=== PATIENT | male | born 1970 | race Caucasian/White ===

== ENCOUNTER 2022-01-25 19:03 | Emergency (ER) | payer MEDICAID, OTHER ==
[~2022-01-25] VITALS: Ht 188 cm; Wt 90.7 kg
[2022-01-25 19:15] VITALS: BP 136/85
[2022-01-25] MEDS ORDERED: MORPHINE SULFATE 4 MG/ML SYR IVP ONE ×2 (19:20→23:50)
--- NOTE | 2022-01-25 19:20 | NUR ---
DR SAM AT BEDSIDE
--- NOTE | 2022-01-25 19:52 | NUR ---
Pt report given to AGUILAR CHRISTIANSON. Transfer of care at this time.
[2022-01-25 20:12] LABS: BASOPHILS % (AUTO) 0.9 % (0.0-2.0); EOSINOPHILS # (AUTO) 0.3 K/uL (0-0.4); EOSINOPHILS % (AUTO) 4.4 % (0.0-4.0); HEMATOCRIT 39.4 % (36-52); HEMOGLOBIN 13.1 g/dL (12.0-18.0); LYMPHOCYTES # (AUTO) 1.9 K/uL (2.0-11.5); LYMPHOCYTES % (AUTO) 32.4 % (20.5-51.1); MEAN CORPUSCULAR HEMOGLOBIN 29 pg (27-31); MEAN CORPUSCULAR HGB CONC 33 g/dL (33-37); MEAN CORPUSCULAR VOLUME 87.9 fL (80-94); MONOCYTES # (AUTO) 0.4 K/uL (0.8-1.0); MONOCYTES % (AUTO) 6.2 % (1.7-9.3); NEUTROPHILS # (AUTO) 3.2 K/uL (1.8-7.7); NEUTROPHILS % (AUTO) 56.1 % (42.2-75.2); PLATELET COUNT (AUTO) 75 K/uL (140-450); RED BLOOD CELL COUNT(AUTO) 4.48 MIL/uL (4.20-6.10); RED CELL DISTRIBUTION WIDTH 16.4 % (11.6-13.7); WHITE BLOOD COUNT (AUTO) 5.7 K/uL (4.8-10.8)
--- NOTE | 2022-01-25 20:20 | NUR ---
IV INSERTED BY TREJO VIA US
[2022-01-25 20:35] LABS: ALBUMIN 3.5 g/dL (3.4-5.0); ASPARTATE AMINOTRANSFERASE 71 U/L (15-37); CARBON DIOXIDE 28.2 mmol/L (21-32); CHLORIDE 103 mmol/L (98-107); CREATININE 1.3 mg/dL (0.6-1.3); GFR ARICAN-AMERICAN 75 mL/min (>90); GLUCOSE 87 mg/dL (74-106); POTASSIUM 4.2 mmol/L (3.5-5.1); SODIUM SERUM 138 mmol/L (136-145); TOTAL BILIRUBIN 0.9 mg/dL (0.0-1.0); UREA NITROGEN, BLOOD 24 mg/dL (7-18)
--- NOTE | 2022-01-25 21:15 | NUR ---
PT TAKEN TO CT
--- NOTE | 2022-01-25 21:36 | NUR ---
PT KO FROM CT. X2 BED RAILS UP
--- NOTE | 2022-01-25 21:42 | NUR ---
51 [place] [place] FALL WAS UNWITNESSED. PT WAS THERE FOR 1 HR. PT STATES HE HIT HIS HEAD. PT STATES HE BLACKED OUT WHEN HE HIT HIS HEAD. PT IS SLOW TO SPEAK.A&O X3. PT IS AMBULATORY BUT HAS NOT WALKED SINCE BEING BROUGHT HERE.
[2022-01-25] MEDS ORDERED: KETOROLAC 15 MG/ML VIAL IVP ONE (22:40)
[2022-01-26 00:46] VITALS: BP 135/82
--- NOTE | 2022-01-26 00:46 | NUR ---
Patient discharged with v/s stable. Written and verbal after care instructions given and explained. Patient verbalized understanding. Ambulance Transport with to half-way. All questions addressed prior to discharge. Advised to follow up with PMD.
== END 2022-01-26 00:46 ==
LOC: EDSEX 19:03 → MED 19:03
DX: S09.90XA Unspecified injury of head, initial encounter (principal); M54.2 Cervicalgia; G35 Multiple sclerosis; W19.XXXA Unspecified fall, initial encounter; Y93.89 Activity, other specified; Y92.89 Other specified places as the place of occurrence of the external cause; Y99.8 Other external cause status
CPT/HCPCS: 36415; 70450; 71045; 72125; 80053; 84484; 85025; 93005; 96374; 96376; 99285; J2270; Q0092; J1885